=== PATIENT | female | born 1965 | race Caucasian/White ===

== ENCOUNTER 2018-05-14 10:42 | Day surgery (SDC) | payer MEDICARE, OTHER ==
[~2018-05-14] VITALS: Ht 167.6 cm; Wt 109.5 kg
[~2018-05-14 10:42] MED LIST: ABAT250V; ASPI81CH PO; ATOR80 PO; BIOTIN10000 MC1; BUSP10 PO; Bactrim Ds Tab1 EACH PO; Black Cohosh40 M1; CARNITINE; CETI5 PO; CHOL10002; CYCL10 PO; Coq-10100 MG PO; DICL75ER; FLUO10 PO; GABA300 PO; GABA400 PO; IBUP800 PO; LOSA25 PO; LOSA50 PO; Melatonin5 M1; Multivitamin1 EAC1; NITR100 PO; OMEP20ER PO; OXYACE5T PO; PARO20 PO; PHENA100 PO; PHENA200 PO; PRAV10 PO; PRAV20 PO; Pyridium100 MG PO; SULTRIDS PO; TRAZ100 PO
== END 2018-05-14 15:01 | disposition home or self-care (01) ==
LOC: ORSCSDS 10:42
PROVIDERS: Podiatrist Foot & Ankle Surgery
PROC: 0QBL0ZZ Excision of Right Tarsal, Open Approach (ICD-10-PCS; principal; 2018-05-14 11:45)
PROC: 0L8N0ZZ Division of Right Lower Leg Tendon, Open Approach (ICD-10-PCS; principal; 2018-05-14 11:45)
DX: M24.571 Contracture, right ankle (principal); M76.61 Achilles tendinitis, right leg; I10 Essential (primary) hypertension; E66.01 Morbid (severe) obesity due to excess calories; Z68.39 Body mass index [BMI] 39.0-39.9, adult; Z79.899 Other long term (current) drug therapy
CPT/HCPCS: C1713; J0171; J0690; J1100; J1885; J2250; J2405; J2710; J3010; J7120

== ENCOUNTER 2019-04-18 09:16 | Day surgery (SDC) | payer MEDICARE, OTHER ==
[~2019-04-18] VITALS: Ht 167.6 cm; Wt 103.2 kg
[~2019-04-18 09:16] MED LIST changes: +Percocet 10-321 EACH PO
--- NOTE | 2019-04-18 09:32 | NUR ---
PT ADMITTED TO [facility]. AGREES WITH PLANNED PROCEURE. TOLERATED BOWEL PREP, STATES LAST BM CLEAR. C/O CHRONIC PAIN LEFT HIP 04/04
--- NOTE | 2019-04-18 09:49 | NUR ---
04/18/19 0949 Barbara Richmond History, Chart, Medications and Allergies reviewed before start of procedure. Patient confirms NPO status and agrees with scheduled surgery. PATIENT DETERMINED TO BE ASA APPROPRIATE FOR PROPOFOL SEDATION PRIOR TO START OF PROCEDURE BY DR. LITTLEJOHN. 3-LEAD EKG REVIEWED WITH PHYSICIAN PRIOR TO START OF PROCEDURE. MONITOR INTACT WITH CONTINUOUS PULSE OXIMETRY AND INTERMITTENT BP.
--- NOTE | 2019-04-18 10:44 | NUR ---
PATIENT DISCHARGED WITH INSTRUCTIONS AND AT BASELINE STEADINESS VIA W/C.
== END 2019-04-18 10:46 | disposition home or self-care (01) ==
LOC: ORSCMMR 09:16 → ORD 10:00 → ORSCMMR 10:46
PROVIDERS: Internal Medicine Gastroenterology
PROC: 0DBM8ZX Excision of Descending Colon, Via Natural or Artificial Opening Endoscopic, Diagnostic (ICD-10-PCS; principal; 2019-04-18 10:00)
DX: Z12.11 Encounter for screening for malignant neoplasm of colon (principal); Z80.0 Family history of malignant neoplasm of digestive organs; D12.4 Benign neoplasm of descending colon; K64.8 Other hemorrhoids; K21.9 Gastro-esophageal reflux disease without esophagitis; I10 Essential (primary) hypertension; E78.00 Pure hypercholesterolemia, unspecified; E11.9 Type 2 diabetes mellitus without complications; Z79.84 Long term (current) use of oral hypoglycemic drugs; Z79.899 Other long term (current) drug therapy
CPT/HCPCS: 82947; 88305; J2704; J7120

== ENCOUNTER 2019-08-15 17:55 | Emergency (ER) | payer MEDICARE, OTHER ==
[~2019-08-15] VITALS: Ht 167.6 cm; Wt 103.9 kg
[2019-08-15] MEDS ORDERED: METF500 PO (18:48)
== END 2019-08-15 19:14 | disposition home or self-care (01) ==
LOC: ER 17:55
DX: S80.02XA Contusion of left knee, initial encounter (principal); I10 Essential (primary) hypertension; Z91.048 Other nonmedicinal substance allergy status; Z79.899 Other long term (current) drug therapy; Z79.82 Long term (current) use of aspirin; Z87.891 Personal history of nicotine dependence; W19.XXXA Unspecified fall, initial encounter
CPT/HCPCS: 73562-LT; 99283-25

== ENCOUNTER 2019-10-13 11:05 | Day surgery (SDC) | payer MEDICARE, OTHER ==
[~2019-10-13] VITALS: Ht 167.6 cm; Wt 104.2 kg
[~2019-10-13 11:05] MED LIST changes: +METF500 PO
--- NOTE | 2019-10-13 11:26 | NUR ---
10/13/19 Rosenda6 Lexie Metzger CALL LIGHT WITHIN REACH.
--- NOTE | 2019-10-13 12:39 | NUR ---
10/13/19 1239 Karina Lange IV IN LEFT HAND INFILTRATED IN OR, DISCONTINUED INTACT. NEW IV PLACED IN RIGHT HAND.
== END 2019-10-13 14:05 | disposition home or self-care (01) ==
LOC: ORSCSDS 11:05
PROVIDERS: Orthopaedic Surgery
PROC: 0MBL0ZZ Excision of Right Hip Bursa and Ligament, Open Approach (ICD-10-PCS; principal; 2019-10-13 12:30)
DX: M70.61 Trochanteric bursitis, right hip (principal); I10 Essential (primary) hypertension; E78.00 Pure hypercholesterolemia, unspecified; R73.03 Prediabetes; E66.9 Obesity, unspecified; Z68.37 Body mass index [BMI] 37.0-37.9, adult; Z79.82 Long term (current) use of aspirin; Z79.84 Long term (current) use of oral hypoglycemic drugs; Z79.899 Other long term (current) drug therapy; Z87.891 Personal history of nicotine dependence
CPT/HCPCS: 82947; J0171; J0690; J1100; J1885; J2250; J2370; J2405; J2704; J3010; J7120

== ENCOUNTER 2022-02-18 09:01 | Day surgery (SDC) | payer MEDICARE, OTHER ==
[~2022-02-18] VITALS: Ht 167.6 cm; Wt 113.7 kg
[~2022-02-18 09:01] MED LIST changes: +CLIMARA1 EACH; +Crestor40 MG PO
[2022-02-18] MEDS ORDERED: Crestor20 MG (09:58)
[2022-02-18] MEDS ORDERED: GABA800 (09:59)
[2022-02-18] MEDS ORDERED: HYDROCODONE-AC1 EAC7 (10:00)
[2022-02-18] MEDS ORDERED: MORP30 (10:00)
== END 2022-02-18 11:01 | disposition home or self-care (01) ==
LOC: ORSCSDS 09:01
PROVIDERS: Internal Medicine Gastroenterology
PROC: 0DB58ZX Excision of Esophagus, Via Natural or Artificial Opening Endoscopic, Diagnostic (ICD-10-PCS; principal; 2022-02-18 10:15)
DX: K21.9 Gastro-esophageal reflux disease without esophagitis (principal); K44.9 Diaphragmatic hernia without obstruction or gangrene; E11.9 Type 2 diabetes mellitus without complications; E66.01 Morbid (severe) obesity due to excess calories; Z68.41 Body mass index [BMI] 40.0-44.9, adult; I10 Essential (primary) hypertension; G47.33 Obstructive sleep apnea (adult) (pediatric); Z87.891 Personal history of nicotine dependence; Z79.84 Long term (current) use of oral hypoglycemic drugs; Z79.899 Other long term (current) drug therapy
CPT/HCPCS: 82947; 88305; J2704; J7120

== ENCOUNTER 2023-03-05 22:05 | Emergency (ER) | payer MEDICARE, OTHER ==
[~2023-03-05] VITALS: Ht 167.6 cm; Wt 108.9 kg
[~2023-03-05 22:05] MED LIST changes: +Crestor20 MG; +GABA800 PO; +HYDROCODONE-AC1 EAC7 PO; +MORP30 PO
[2023-03-05] MEDS ORDERED: Simvastatin20 MG PO (22:42)
[2023-03-05] MEDS ORDERED: PANTOPRAZOLE SO40 M2 PO (22:43)
[2023-03-05] MEDS ORDERED: DULOXETINE HCL60 M1 PO (22:43)
[2023-03-05] MEDS ORDERED: ESTRADIOL1 M1 PO (22:44)
[2023-03-05 22:50] LABS: BASOPHILS ABSOLUTE AUTO 0.01 K/mm3 (0.00-0.23); BASOPHILS PERCENT AUTO 0 % (0-2); EOSINOPHILS ABSOLUTE AUTO 0.13 K/mm3 (0.00-0.68); EOSINOPHILS PERCENT AUTO 2 % (0-6); Hematocrit 38.4 % (33.0-51.0); Hemoglobin 12.3 g/dL (11.5-16.0); IMMATURE GRAN ABSOLUTE AUTO 0.02 K/mm3 (0.00-0.10); IMMATURE GRAN PERCENT AUTO 0 % (0-1); LYMPHOCYTES ABSOLUTE AUTO 1.53 K/mm3 (0.84-5.20); LYMPHOCYTES PERCENT AUTO 18 % (21-46); MONOCYTES ABSOLUTE AUTO 0.43 K/mm3 (0.16-1.47); MONOCYTES PERCENT AUTO 5 % (4-13); Mean Corpuscular HGB 25.9 pg (26.0-34.0); Mean Corpuscular Volume 81 fL (80-100); Mean Platelet Volume 9.8 fL (9.1-12.4); NEUTROPHILS ABSOLUTE AUTO 6.34 K/mm3 (1.96-9.15); NEUTROPHILS PERCENT AUTO 75 % (41-73); Platelet Count 248 K/mm3 (150-400); RDW Coefficient Variation 16.7 % (11.7-14.2); RDW Standard Deviation 48.9 fL (35.1-46.3); Red Blood Cell Count 4.74 M/mm3 (3.80-5.20); White Blood Cell Count 8.46 K/mm3 (4.00-11.30)
[2023-03-05 23:10] LABS: Albumin, Blood 3.2 g/dL (3.4-5.0); Albumin/Globulin Ratio 0.7 (0.8-1.8); Bilirubin, Total 0.3 mg/dL (0.1-1.0); Bun/Creatinine Ratio 14.2 (12.0-20.0); Creatinine, Blood 0.56 mg/dL (0.40-1.00); Globulin, Blood 4.5 g/dL (2.2-4.0); Potassium, Blood 3.6 mmol/L (3.5-5.5); Total Protein, Blood 7.7 g/dL (6.4-8.2)
[2023-03-05] MEDS ORDERED: ONDA4ODT MM (23:47)
[2023-03-06] VITALS: BP 137/79
== END 2023-03-06 00:30 | disposition home or self-care (01) ==
LOC: ER 22:05
PROVIDERS: Student in an Organized Health Care Education/Training Program
DX: K52.9 Noninfective gastroenteritis and colitis, unspecified (principal); R10.13 Epigastric pain; Z88.8 Allergy status to other drugs, medicaments and biological substances; Z79.899 Other long term (current) drug therapy; Z79.84 Long term (current) use of oral hypoglycemic drugs; I10 Essential (primary) hypertension; E78.00 Pure hypercholesterolemia, unspecified; Z87.891 Personal history of nicotine dependence
CPT/HCPCS: 80053; 85025; 93005; 93010; 99283-25; A9270

== ENCOUNTER 2023-06-30 23:16 | Emergency (ER) | payer MEDICARE, OTHER ==
[~2023-06-30] VITALS: Ht 167.6 cm; Wt 105.7 kg
[~2023-06-30 23:16] MED LIST changes: +DULOXETINE HCL60 M1 PO; +ESTRADIOL1 M1 PO; +ONDA4ODT MM; +PANTOPRAZOLE SO40 M2 PO; +Simvastatin20 MG PO
[2023-07-01 00:48] LABS: BASOPHILS ABSOLUTE AUTO 0.01 K/mm3 (0.00-0.23); BASOPHILS PERCENT AUTO 0 % (0-2); EOSINOPHILS ABSOLUTE AUTO 0.16 K/mm3 (0.00-0.68); EOSINOPHILS PERCENT AUTO 2 % (0-6); Hematocrit 32.4 % (33.0-51.0); Hemoglobin 10.2 g/dL (11.5-16.0); IMMATURE GRAN ABSOLUTE AUTO 0.01 K/mm3 (0.00-0.10); IMMATURE GRAN PERCENT AUTO 0 % (0-1); LYMPHOCYTES ABSOLUTE AUTO 2.17 K/mm3 (0.84-5.20); LYMPHOCYTES PERCENT AUTO 30 % (21-46); MONOCYTES PERCENT AUTO 7 % (4-13); Mean Corpuscular HGB 27.9 pg (26.0-34.0); Mean Corpuscular HGB Conc 31.5 g/dL (31.5-36.5); Mean Corpuscular Volume 89 fL (80-100); Mean Platelet Volume 10.1 fL (9.1-12.4); NEUTROPHILS ABSOLUTE AUTO 4.32 K/mm3 (1.96-9.15); NEUTROPHILS PERCENT AUTO 60 % (41-73); Platelet Count 227 K/mm3 (150-400); RDW Coefficient Variation 15.9 % (11.7-14.2); RDW Standard Deviation 52.4 fL (35.1-46.3); Red Blood Cell Count 3.65 M/mm3 (3.80-5.20); White Blood Cell Count 7.17 K/mm3 (4.00-11.30)
[2023-07-01 01:42] LABS: Albumin, Blood 2.7 g/dL (3.4-5.0); Albumin/Globulin Ratio 0.8 (0.8-1.8); Bilirubin, Total 0.2 mg/dL (0.1-1.0); Bun/Creatinine Ratio 12.5 (12.0-20.0); Calcium, Blood 7.9 mg/dL (8.5-10.1); Creatinine, Blood 0.72 mg/dL (0.40-1.00); Globulin, Blood 3.6 g/dL (2.2-4.0); Magnesium, Blood 1.9 mg/dL (1.6-2.4); Phosphorus, Blood 2.2 mg/dL (2.5-4.9); Potassium, Blood 4.3 mmol/L (3.5-5.5); Thyroid Stimulating Hormone 1.36 uIU/mL (0.360-4.800); Total Protein, Blood 6.3 g/dL (6.4-8.2)
[2023-07-01] MEDS ORDERED: CENTRUM SILVER1 EAC2 PO (02:02)
[2023-07-01 02:30] VITALS: BP 123/75
== END 2023-07-01 02:32 | disposition home or self-care (01) ==
LOC: ER 23:16
PROVIDERS: Emergency Medicine
DX: E83.39 Other disorders of phosphorus metabolism (principal); Z88.8 Allergy status to other drugs, medicaments and biological substances; Z79.899 Other long term (current) drug therapy; Z79.84 Long term (current) use of oral hypoglycemic drugs; Z79.891 Long term (current) use of opiate analgesic; I10 Essential (primary) hypertension; E78.5 Hyperlipidemia, unspecified; K21.9 Gastro-esophageal reflux disease without esophagitis; E11.9 Type 2 diabetes mellitus without complications; Z87.891 Personal history of nicotine dependence
CPT/HCPCS: 71046; 80053; 83735; 84100; 84443; 85025; 93005; 93010; 96360; 99285-25; A9270; J7030

== ENCOUNTER 2025-01-06 11:21 | Day surgery (SDC) | payer MEDICARE, OTHER ==
[~2025-01-06] VITALS: Ht 160 cm; Wt 112.7 kg
[~2025-01-06 11:21] MED LIST changes: +Atropine Sulfate 0.1 MG/ML 10ML SYR ONE; +CENTRUM SILVER1 EAC2 PO; +Glycopyrrolate 0.2 MG/ML 1MLVIAL ONE; +Lactated Ringer's 1,000 ML IV ONE; +Lactated Ringer's 1,000 ML IV SCH; +Lidocaine 2% 5 ML SDV ONE; +Lidocaine HCl/Pf 1% 5 ML VIAL ONE; +MAGNESIUM PO; +Methylene Blue 1% 100 MG/10 ML VIAL ONE; +Ondansetron HCl 2 MG / ML 2ML Vial ONE; +ePHEDrine Sulfate 50 MG/ML 1ML Injection ONE; +propofoL 0 ML IV ONE
[2025-01-06 11:52] VITALS: BP 141/83
--- NOTE | 2025-01-06 12:26 | NUR ---
Ambulatory in Day Surgery W/CANE Patient confirms NPO status and agrees with scheduled surgery. Pre-Op teaching done. Pt verbalizes understanding. History, Chart, Medications and Allergies reviewed before start of procedure.Patient States Post-Procedure ride home has been arranged.
[2025-01-06] MEDS ORDERED: propofoL 60 ML IV ONE (13:11)
[2025-01-06] MEDS ORDERED: Lidocaine HCl 2% 10 ML SDA ONE (13:11)
--- NOTE | 2025-01-06 13:17 | NUR ---
01/06/25 1317 Baldo Polanco MONITOR INTACT WITH CONTINUOUS PULSE OXIMETRY, CONTINUOUS END TITAL CO2, 3-LEAD EKG AND INTERMITTENT BLOOD PRESSURE. SEE ANESTHESIA RECORD
[2025-01-06] MEDS ORDERED: OZEMPIC0.25 MG/02 (13:22)
[2025-01-06 13:45] VITALS: BP 104/76
[2025-01-06 14:00] VITALS: BP 114/90
--- NOTE | 2025-01-06 14:06 | NUR ---
Patient up to Ambulate independently. Gait steady. Discharge instructions reviewed with patient. Patient verbalizes understanding. Copy given to patient to take home. Discharged via wheelchair to private car for ride home. PT TO F/U W/ DR. RAMIREZ'S OFFICE TO REPEAT MULTI DAY CLEAN OUT THE TEST WAS UNABLE TO BE COMPLETED D/T POOR CLEAN OUT
[2025-01-06] MEDS ORDERED: Phenylephrine HCl 40 MCG/ML-NS 10MLSYR (0.4MG/ML) IV ONE (14:44)
== END 2025-01-06 13:46 | disposition home or self-care (01) ==
LOC: ORSCSDS 11:21 → ORSCMMR 11:21 → ORSCSDS 13:46 → ORSCMMR 13:46 → ORSCSDS 14:07
PROVIDERS: Surgery
PROC: 0DJD8ZZ Inspection of Lower Intestinal Tract, Via Natural or Artificial Opening Endoscopic (ICD-10-PCS; principal; 2025-01-06 12:30)
DX: Z12.11 Encounter for screening for malignant neoplasm of colon (principal); K57.30 Diverticulosis of large intestine without perforation or abscess without bleeding; Z86.0101 Personal history of adenomatous and serrated colon polyps; I10 Essential (primary) hypertension; E78.2 Mixed hyperlipidemia; R73.03 Prediabetes; Z87.891 Personal history of nicotine dependence; E66.01 Morbid (severe) obesity due to excess calories; Z68.41 Body mass index [BMI] 40.0-44.9, adult; K21.9 Gastro-esophageal reflux disease without esophagitis; F32.9 Major depressive disorder, single episode, unspecified; Z79.899 Other long term (current) drug therapy
CPT/HCPCS: J0461; J2003; J2371; J2405; J2704; J7120; Q9968

== ENCOUNTER 2025-02-24 08:17 | Day surgery (SDC) | payer MEDICARE, OTHER ==
[~2025-02-24] VITALS: Ht 160 cm; Wt 110.0 kg
[~2025-02-24 08:17] MED LIST changes: +ASHWAGANDHA300 MG; -Atropine Sulfate 0.1 MG/ML 10ML SYR ONE; +COLLAGEN SKIN1 EACH PO; +FERSU300 PO; -Glycopyrrolate 0.2 MG/ML 1MLVIAL ONE; -Lactated Ringer's 1,000 ML IV ONE; -Lidocaine 2% 5 ML SDV ONE; -Lidocaine HCl/Pf 1% 5 ML VIAL ONE; +MERIBIN5 MG PO; +MULTI-VITAMIN1 EAC2 PO; -Methylene Blue 1% 100 MG/10 ML VIAL ONE; +Milk Thistle175 M1 PO; +OZEMPIC0.25 MG/02; +OZEMPIC0.25 MG/02 INJ; -Ondansetron HCl 2 MG / ML 2ML Vial ONE; +VITAMIN K240 MCG; +Vitamin B Comple1 EA PO; -ePHEDrine Sulfate 50 MG/ML 1ML Injection ONE; -propofoL 0 ML IV ONE
--- NOTE | 2025-02-24 08:35 | NUR ---
PT TO [facility] FOR COLONOSCOPY. PLAN OF CARE DISCUSSED, QUESTIONS ANSWERED. PT HAS RIDE HOME
[2025-02-24 08:45] VITALS: BP 137/68
[2025-02-24] MEDS ORDERED: Lidocaine HCl 1% 5 ML SYR INJ ONE (09:20)
[2025-02-24] MEDS ORDERED: Lactated Ringer's 1,000 ML IV SCH (09:20)
[2025-02-24] MEDS ORDERED: Ondansetron HCl 2 MG / ML 2ML Vial IV PRN ×2 (09:45→09:50)
[2025-02-24] MEDS ORDERED: Albuterol 2.5 MG/3 ML VIAL INH PRN ×2 (09:45)
--- NOTE | 2025-02-24 09:59 | NUR ---
02/24/25 0959 Shirley Lancaster MONITOR INTACT WITH CONTINUOUS PULSE OXIMETRY, CONTINUOUS END TITAL CO2, 3-LEAD EKG AND INTERMITTENT BLOOD PRESSURE. See Anesthesia record FOR SEDATION RECORD.
[2025-02-24] MEDS ORDERED: propofoL 20 ML IV ONE (10:21)
[2025-02-24] MEDS ORDERED: propofoL 40 ML IV ONE (10:38)
[2025-02-24 10:47] VITALS: BP 86/69
[2025-02-24 10:48] VITALS: BP 98/64
--- NOTE | 2025-02-24 10:51 | NUR ---
TO STEP POST PROCEDURE. DROWSY, AWAKES EASILY. DENIES PAIN, NAUSEA, SOB. IMAGING ORDERED FOR TODAY PRIOR TO PT DISCHARGE.
[2025-02-24 10:58] VITALS: BP 105/68
--- NOTE | 2025-02-24 11:18 | NUR ---
1110: TO CT. WILL RETURN TO [facility] PRIOR TO DISCHARGE. VALENTINO CALLED.
[2025-02-24 11:28] VITALS: BP 120/64
--- NOTE | 2025-02-24 11:34 | NUR ---
CT COMPLETED. IV DC'D INTACT. DISCHARGED IN STABLE CONDITION WITH BELONGINGS.
== END 2025-02-24 11:37 | disposition home or self-care (01) ==
LOC: ORSCMMR 08:17 → ORD 09:30 → ORSCMMR 09:30
PROVIDERS: Surgery
PROC: 0DBP8ZX Excision of Rectum, Via Natural or Artificial Opening Endoscopic, Diagnostic (ICD-10-PCS; principal; 2025-02-24 09:30)
PROC: 3E0H8KZ Introduction of Other Diagnostic Substance into Lower GI, Via Natural or Artificial Opening Endoscopic (ICD-10-PCS; principal; 2025-02-24 09:30)
PROC: 0DBN8ZX Excision of Sigmoid Colon, Via Natural or Artificial Opening Endoscopic, Diagnostic (ICD-10-PCS; principal; 2025-02-24 09:30)
DX: Z12.11 Encounter for screening for malignant neoplasm of colon (principal); D12.4 Benign neoplasm of descending colon; K62.1 Rectal polyp; K56.699 Other intestinal obstruction unspecified as to partial versus complete obstruction; I10 Essential (primary) hypertension; E78.5 Hyperlipidemia, unspecified; Z87.891 Personal history of nicotine dependence; G47.33 Obstructive sleep apnea (adult) (pediatric); K21.9 Gastro-esophageal reflux disease without esophagitis; R73.03 Prediabetes; E66.01 Morbid (severe) obesity due to excess calories; Z68.41 Body mass index [BMI] 40.0-44.9, adult; Z79.899 Other long term (current) drug therapy; Z79.85 Long-term (current) use of injectable non-insulin antidiabetic drugs
CPT/HCPCS: 71260; 74177; 82947; 88305; J2704; J7120; Q9967

== ENCOUNTER 2025-05-11 00:32 | Emergency (ER) | payer MEDICARE, OTHER ==
[~2025-05-11] VITALS: Ht 157.5 cm; Wt 113.4 kg
[~2025-05-11 00:32] MED LIST changes: -Lactated Ringer's 1,000 ML IV SCH; +METO10 PO
[2025-05-11] MEDS ORDERED: Ketorolac Tromethamine 30mg Vial IV ONE (01:35)
[2025-05-11 02:00] VITALS: BP 199/100
[2025-05-11 02:06] LABS: Alanine Aminotransfer (ALT/SGP 30.0 U/L (12-78); Albumin, Blood 3.2 g/dL (3.4-5.0); Albumin/Globulin Ratio 0.6 (0.8-1.8); Anion Gap 12.0 mmol/L (3-11); Aspartate Aminotrans (AST/SGOT 28.0 U/L (12-37); Bilirubin, Total 0.6 mg/dL (0.1-1.0); Blood Urea Nitrogen 3.0 mg/dL (8-24); CO2, Blood 26.0 mmol/L (21-32); Calcium, Blood 9.1 mg/dL (8.5-10.1); Chloride, Blood 99.0 mmol/L (98-108); Creatinine, Blood 0.6 mg/dL (0.40-1.00); Globulin, Blood 5.3 g/dL (2.2-4.0); Glucose, Blood 152.0 mg/dL (70-99); Potassium, Blood 3.9 mmol/L (3.5-5.5); Sodium, Blood 133.0 mmol/L (136-145); Total Protein, Blood 8.5 g/dL (6.4-8.2)
[2025-05-11 02:11] LABS: BASOPHILS ABSOLUTE AUTO 0.02 K/mm3 (0.00-0.23); BASOPHILS PERCENT AUTO 0 % (0-2); EOSINOPHILS ABSOLUTE AUTO 0.03 K/mm3 (0.00-0.68); EOSINOPHILS PERCENT AUTO 0 % (0-6); Hematocrit 40.4 % (33.0-51.0); Hemoglobin 13.3 g/dL (11.5-16.0); IMMATURE GRAN ABSOLUTE AUTO 0.02 K/mm3 (0.00-0.10); IMMATURE GRAN PERCENT AUTO 0 % (0-1); LYMPHOCYTES ABSOLUTE AUTO 1.03 K/mm3 (0.84-5.20); LYMPHOCYTES PERCENT AUTO 10 % (21-46); MONOCYTES ABSOLUTE AUTO 0.37 K/mm3 (0.16-1.47); MONOCYTES PERCENT AUTO 3 % (4-13); Mean Corpuscular HGB Conc 32.9 g/dL (31.5-36.5); Mean Corpuscular Volume 89 fL (80-100); NEUTROPHILS ABSOLUTE AUTO 9.37 K/mm3 (1.96-9.15); NEUTROPHILS PERCENT AUTO 86 % (41-73); NRBC ABSOLUTE 0.00 K/mm3 (0.00-0.02); NRBC Auto 0.0 /100 WBC (0.0-0.2); Platelet Count 240 K/mm3 (150-400); RDW Coefficient Variation 15.1 % (11.7-14.2); RDW Standard Deviation 48.5 fL (35.1-46.3)
[2025-05-11] MEDS ORDERED: Ondansetron HCl 2 MG / ML 2ML Vial IV ONE (02:20)
[2025-05-11 02:37] LABS: Source, Urine Clean Catch
[2025-05-11 02:42] LABS: Bilirubin, Urine Neg (Neg); Glucose Qualitative, Urine Neg (Neg); Ketones, Urine 4+ (Neg); Leukocyte Esterase, Urine Neg (Neg); Protein, Urine 2+ (Neg); Specific Gravity, Urine 1.010 (1.003-1.022); Urobilinogen, Urine NORM (Normal)
[2025-05-11 02:58] LABS: Color, Urine Yellow (P-Yellow)
[2025-05-11 02:59] LABS: Red Blood Cells, Urine 0-2 /hpf (0-2); White Blood Cells, Urine 0-2 /hpf (0-5)
[2025-05-11] MEDS ORDERED: Morphine Sulfate 4 MG/1 ML Injection IV ONE (03:10)
[2025-05-11] MEDS ORDERED: Trimethoprim/Sulfamethoxazole DS Tab PO ONE (03:25)
[2025-05-11] MEDS ORDERED: CefTRIAXone Sodium 1,000 MG in NS 100 ML IV ONE (03:25)
[2025-05-11] MEDS ORDERED: Flagyl500 MG PO (03:27)
[2025-05-11] MEDS ORDERED: Bactrim Ds Tab1 EACH PO (03:27)
[2025-05-11] MEDS ORDERED: IBU600 MG PO (03:27)
== END 2025-05-11 03:54 | disposition home or self-care (01) ==
LOC: ER 00:32
PROVIDERS: Emergency Medicine
DX: K52.9 Noninfective gastroenteritis and colitis, unspecified (principal); I10 Essential (primary) hypertension; E11.9 Type 2 diabetes mellitus without complications; E78.5 Hyperlipidemia, unspecified; K21.9 Gastro-esophageal reflux disease without esophagitis; Z87.891 Personal history of nicotine dependence; Z79.899 Other long term (current) drug therapy; Z91.048 Other nonmedicinal substance allergy status
CPT/HCPCS: 74177; 80053; 81001; 83605; 83690; 85025; 96365-59; 96375; 99285-25; A9270; J0696; J1885; J2270; J2405; Q9967

== ENCOUNTER 2025-08-22 16:54 | Inpatient (IN) | payer MEDICARE, OTHER ==
[~2025-08-22] VITALS: Ht 160 cm; Wt 118.0 kg
[~2025-08-22 16:54] MED LIST changes: +Flagyl500 MG PO; +IBU600 MG PO
[2025-08-22 17:20] LABS: BASOPHILS ABSOLUTE AUTO 0.03 K/mm3 (0.00-0.23); BASOPHILS PERCENT AUTO 0 % (0-2); EOSINOPHILS ABSOLUTE AUTO 0.03 K/mm3 (0.00-0.68); EOSINOPHILS PERCENT AUTO 0 % (0-6); Hematocrit 33.2 % (33.0-51.0); Hemoglobin 10.6 g/dL (11.5-16.0); IMMATURE GRAN ABSOLUTE AUTO 0.04 K/mm3 (0.00-0.10); IMMATURE GRAN PERCENT AUTO 0 % (0-1); LYMPHOCYTES ABSOLUTE AUTO 0.90 K/mm3 (0.84-5.20); LYMPHOCYTES PERCENT AUTO 8 % (21-46); MONOCYTES ABSOLUTE AUTO 0.56 K/mm3 (0.16-1.47); MONOCYTES PERCENT AUTO 5 % (4-13); Mean Corpuscular HGB Conc 31.9 g/dL (31.5-36.5); Mean Corpuscular Volume 92 fL (80-100); NEUTROPHILS ABSOLUTE AUTO 10.03 K/mm3 (1.96-9.15); NEUTROPHILS PERCENT AUTO 87 % (41-73); NRBC ABSOLUTE 0.00 K/mm3 (0.00-0.02); NRBC Auto 0.0 /100 WBC (0.0-0.2); Platelet Count 182 K/mm3 (150-400); RDW Coefficient Variation 14.4 % (11.7-14.2); RDW Standard Deviation 48.3 fL (35.1-46.3)
[2025-08-22] MEDS ORDERED: Albuterol 2.5 MG/3 ML VIAL INH SCH (17:20)
[2025-08-22] MEDS ORDERED: Morphine Sulfate 4 MG/1 ML Injection IV ONE ×2 (17:25→18:05)
[2025-08-22] MEDS ORDERED: LORazepam 2 MG/ML 1ML Injection IV ONE (17:25)
[2025-08-22 17:27] LABS: pH Blood Venous 7.35 (7.34-7.37)
[2025-08-22 18:16] LABS: Alanine Aminotransfer (ALT/SGP 44.0 U/L (12-78); Albumin, Blood 3.1 g/dL (3.4-5.0); Albumin/Globulin Ratio 0.8 (0.8-1.8); Anion Gap 10.0 mmol/L (3-11); Aspartate Aminotrans (AST/SGOT 49.0 U/L (12-37); Bilirubin, Total 0.4 mg/dL (0.1-1.0); Blood Urea Nitrogen 8.0 mg/dL (8-24); CO2, Blood 28.0 mmol/L (21-32); Calcium, Blood 8.8 mg/dL (8.5-10.1); Chloride, Blood 100.0 mmol/L (98-108); Creatinine, Blood 0.64 mg/dL (0.40-1.00); Globulin, Blood 4.0 g/dL (2.2-4.0); Glucose, Blood 159.0 mg/dL (70-99); Potassium, Blood 4.1 mmol/L (3.5-5.5); Sodium, Blood 134.0 mmol/L (136-145); Total Protein, Blood 7.1 g/dL (6.4-8.2)
[2025-08-22 18:28] LABS: Influenza A, PCR NEGATIVE (NEGATIVE); Influenza B, PCR NEGATIVE (NEGATIVE); Resp Syncytial Virus, PCR NEGATIVE (NEGATIVE); SARS-Cov-2 (COVID-19) PCR, MMC NEGATIVE (NEGATIVE)
[2025-08-22] MEDS ORDERED: Bupropion HCl75 MG (18:29)
[2025-08-22] MEDS ORDERED: HYDROmorphone HCl/Pf 1MG SYR ONE (19:44)
[2025-08-22] MEDS ORDERED: HYDROmorphone HCl/Pf 1MG SYR IV ONE (19:45)
[2025-08-22] MEDS ORDERED: Morphine Sulfate 4 MG/1 ML Injection IV PRN (20:50)
[2025-08-22] MEDS ORDERED: FLU VACC TS2025-26(6MOS UP)/PF 45 MCG/0.5 ML SYRINGE IM SCH (20:50)
[2025-08-22] MEDS ORDERED: Ondansetron HCl 2 MG / ML 2ML Vial IV PRN (20:50)
[2025-08-22] MEDS ORDERED: Albuterol 2.5 MG/3 ML VIAL INH PRN (20:55)
--- NOTE | 2025-08-22 21:46 | NUR ---
ARRIVAL NOTE PATIENT ARRIVES TO PCU ROOM 17 VIA ED GURNEY ON 4L/MIN NC. RR IN 20'S. PATIENT APPEARS TO BE ANXIOUS AND FOCUSING ON HER BREATHING. PATIENT TRANSFERRED FROM ED BED TO PCU BED VIA SLIDER SHEET. VITALS CHECKED. SPO2 97-100% ON SUPPLEMENTAL OXYGEN. PATIENT PROVIDED VERBAL COMFORT AND REASSURANCE. RT AT BEDSIDE SETTING UP BIPAP. PATIENT OPTED TO STAY OFF BIPAP AT THIS TIME. PATIENT STATES SHE HAS NOT EATING SINCE THIS MORNING. SIDE RAILS X3 UP AND CALL LIGHT IN REACH. PATIENT ORIENTED TO UNIT. PLAN OF CARE ONGOING AT THIS TIME.
[2025-08-22 22:18] LABS: Influenza A/2009-H1 Not Detected (NOT DETECT); SARS-Cov-2 (COVID-19), BioFire Not Detected (NOT DETECT)
[2025-08-22 22:26] VITALS: BP 190/107; BP 190/111
[2025-08-22] MEDS ORDERED: HydrALAZINE HCl 20 MG / ML 1ML Vial IV PRN (22:45)
--- NOTE | 2025-08-22 22:46 | NUR ---
NOTIFIED HOSPITAL RESIDENT OF ELEVATED BP. ORDERS RECEIVED. PATIENT'S PAIN DECREASED TO 6/10 HEADACHE.
[2025-08-22 23:16] VITALS: BP 178/97
[2025-08-22 23:27] LABS: pH Blood Venous 7.35 (7.34-7.37)
--- NOTE | 2025-08-22 23:55 | NUR ---
INCREASED MID SUBSTERNAL CP THAT INCREASED WITH BREATHING. RR IN 40'S O2 WNL. PATIENT PLACED ON BIPAP WITH NO IMPROVEMENT. EKG DONE. DISCUSSED WITH CHARGE NURSE. CALLED RESIDENT TO NOTIFY OF CONTINUED ELEVATED BP AND CHEST PAIN WITH CP. PENDING ORDERS AT THIS TIME.
[2025-08-23] VITALS (14 sets, daily range): BP systolic 139–205; BP diastolic 70–118
[2025-08-23] MEDS ORDERED: HYDROmorphone HCl/Pf 1MG SYR ONE (00:26)
[2025-08-23] MEDS ORDERED: Pantoprazole Sodium 40 MG Injection IV ONE (00:30)
[2025-08-23] MEDS ORDERED: HYDROmorphone HCl/Pf 1MG SYR IV ONE ×2 (00:30→05:35)
[2025-08-23] MEDS ORDERED: FentaNYL Citrate 50 MCG/ML 2 ML Injection ONE (00:33)
[2025-08-23] MEDS ORDERED: FentaNYL Citrate 50 MCG/ML 2 ML Injection IV ONE (00:35)
[2025-08-23] MEDS ORDERED: Labetalol HCL 5 MG/ML 4ML Injection (Single Dose) ONE (00:38)
[2025-08-23] MEDS ORDERED: Labetalol HCL 5 MG/ML 4ML Injection (Single Dose) IV ONE (00:40)
[2025-08-23] MEDS ORDERED: FentaNYL Citrate 50 MCG/ML 2 ML Injection IV PRN (00:55)
[2025-08-23] MEDS ORDERED: Labetalol HCL 5 MG/ML 4ML Injection (Single Dose) IV PRN (00:55)
[2025-08-23 01:02] LABS: Anion Gap 15.0 mmol/L (3-11); Blood Urea Nitrogen 7.0 mg/dL (8-24); CO2, Blood 25.0 mmol/L (21-32); Calcium, Blood 9.1 mg/dL (8.5-10.1); Chloride, Blood 96.0 mmol/L (98-108); Creatinine, Blood 0.65 mg/dL (0.40-1.00); Glucose, Blood 221.0 mg/dL (70-99); Magnesium, Blood 1.5 mg/dL (1.6-2.4); Phosphorus, Blood 3.5 mg/dL (2.5-4.9); Potassium, Blood 4.0 mmol/L (3.5-5.5); Sodium, Blood 132.0 mmol/L (136-145)
[2025-08-23] MEDS ORDERED: Isosorbide Mononitrate 30 MG TABCR PO SCH (01:25)
[2025-08-23] MEDS ORDERED: HYDROmorphone HCl/Pf 1MG SYR IV PRN (01:50)
--- NOTE | 2025-08-23 02:53 | NUR ---
PATIENT CONTINUED TO HAVE CP AND SOB IN SPITE OF HAVING BIPAP ON. PATIENT SPEAKING IN BROKEN SENTENCES. PATIENT WAS MEDICATED WITH NITRO X1 SL AT APPROX 0001. PATIENT'S RR DECREASED FROM 30-20'S. PATIENT REPORTED PAIN DECREASING SLIGHTLY BUT INCREASED HER SENSE OF SHORTNESS OF BREATH. HR INCREASED TO 110'S. OBVIOUS LABORED BREATHING. RT, PCU CN, ICU CN, OTHER STAFF TO BEDSIDE. CALL MADE TO RESIDENT REQUESTING HER TO COME TO BEDSIDE AT [phone]. REVIEWED PATIENT'S HISTORY, LABS, MEDICATIONS, RECENT ASSESSMENTS WITH OTHER NURSES/RT IN ROOM. LS INS/EXP CRACKLES. 0012: RESIDENT TO BEDSIDE. DISCUSSED CASE WITH HER. PATIENT STILL VERY SOB. SPO2 WNL. RR IN 30'S. ST ON MONITOR 110'S WITH PACS. EKG DONE AND GIVEN TO PROVIDER. 0020: DISCUSSED CASE WITH DR CLAROS AND NURSING TEAM. RECEIVED ORDERS FOR DILAUDID, PROTONIX, FENT, LABETALOL, ZOFRAN. SEE EMAR. BP IMPROVING. DR CLAROS REVIEWING CHART AND EKG. PRIMARY RN REMAINS AT BEDSIDE. 0115: PATIENT REPORTS PAIN SIGNIFICANTLY DECREASED. PATIENT NO LONGER SOB. SPO2 WNL. RR IN 20'S - IMPROVING. BP IMPROVED AFTER LABETALOL. PATIENT VOIDED APPROX 1100 ML YELLOW URINE IN BSC. 1 PERSON ASSIST FOR CORD MANAGEMENT. DR CLAROS TO BEDSIDE TO RE-EVAL. 1V CXR DONE. 0200: RESIDENT TO BEDSIDE TO RE-EVAL. PATIENT LOOKS MUCH BETTER. NO SOB REPORTED. CP DECREASED WITH EASE OF BREATHING. SR ON MONITOR 80-90'S.
[2025-08-23 04:03] LABS: BASOPHILS ABSOLUTE AUTO 0.01 K/mm3 (0.00-0.23); BASOPHILS PERCENT AUTO 0 % (0-2); EOSINOPHILS ABSOLUTE AUTO 0.00 K/mm3 (0.00-0.68); EOSINOPHILS PERCENT AUTO 0 % (0-6); Hematocrit 35.1 % (33.0-51.0); Hemoglobin 11.4 g/dL (11.5-16.0); IMMATURE GRAN ABSOLUTE AUTO 0.06 K/mm3 (0.00-0.10); IMMATURE GRAN PERCENT AUTO 0 % (0-1); LYMPHOCYTES ABSOLUTE AUTO 0.42 K/mm3 (0.84-5.20); LYMPHOCYTES PERCENT AUTO 3 % (21-46); MONOCYTES ABSOLUTE AUTO 0.43 K/mm3 (0.16-1.47); MONOCYTES PERCENT AUTO 3 % (4-13); Mean Corpuscular HGB Conc 32.5 g/dL (31.5-36.5); Mean Corpuscular Volume 91 fL (80-100); NEUTROPHILS ABSOLUTE AUTO 13.19 K/mm3 (1.96-9.15); NEUTROPHILS PERCENT AUTO 94 % (41-73); NRBC ABSOLUTE 0.00 K/mm3 (0.00-0.02); NRBC Auto 0.0 /100 WBC (0.0-0.2); Platelet Count 204 K/mm3 (150-400); RDW Coefficient Variation 14.5 % (11.7-14.2); RDW Standard Deviation 48.1 fL (35.1-46.3)
[2025-08-23 04:28] LABS: Anion Gap 11.0 mmol/L (3-11); Blood Urea Nitrogen 8.0 mg/dL (8-24); CO2, Blood 29.0 mmol/L (21-32); Calcium, Blood 9.1 mg/dL (8.5-10.1); Chloride, Blood 95.0 mmol/L (98-108); Creatinine, Blood 0.67 mg/dL (0.40-1.00); Glucose, Blood 181.0 mg/dL (70-99); Magnesium, Blood 1.6 mg/dL (1.6-2.4); Potassium, Blood 4.1 mmol/L (3.5-5.5); Sodium, Blood 131.0 mmol/L (136-145)
[2025-08-23] MEDS ORDERED: Furosemide 10 MG / ML 2ML Vial IV ONE (05:40)
--- NOTE | 2025-08-23 06:09 | NUR ---
SHIFT SUMMARY PATIENT ARRIVED TO UNIT A/OX4. OBVIOUS SOB AND TACHYPNEA. PATIENT HAD EPISODE OF 10/10 CP AND INCREASED SOB. HOSPITALIST AND MULTIPLE STAFF WERE AT BEDSIDE DURING EPISODE. PATIENT RECEIVED PAIN MEDICATION AND LASIX. EKG X2 DONE. PAIN EVENTUALLY IMPROVED. PATIENT WAS ABLE TO COMMUNICATE IN FULL SENTENCES WITHOUT SOB. CPAP WAS ON FOR SHORT PERIOD, BUT PATIENT DIDN'T TOLERATE WELL. SHE HAD ANOTHER EPISODE OF INCREASED TIGHTNESS IN CHEST WITH SOB APPROX [address] LIZAMA CAME TO BEDSIDE AND GAVE V/O FOR DILAUDID 0.5MG IVP AND LASIX 20MG IVP. CRACKLES AUSC IN BASES OF LUNGS. PAIN AND SOB IMPROVED AFTER DILAUDID. REVIEWED URINE OUTPUT OVER 2L SINCE ADMISSION. PROVIDER CANCELLED EXTRA DOSE OF LASIX. OVERALL PATIENT IMPROVED FROM EARLIER. SR ON MONITOR. BP IMPROVED. PLAN OF CARE ONGOING.
[2025-08-23] MEDS ORDERED: DULoxetine HCL 60 MG Capsule DR PO SCH (09:00)
[2025-08-23] MEDS ORDERED: Enoxaparin 40 MG/0.4 ML SYR SC SCH ×2 (09:00→21:00)
[2025-08-23] MEDS ORDERED: ONDA4ODT SL (10:10)
[2025-08-23] MEDS ORDERED: ZANAFLEX413 PO (10:11)
[2025-08-23] MEDS ORDERED: SUCRALFATE PO (10:12)
[2025-08-23] MEDS ORDERED: MORP30 PO (10:18)
[2025-08-23] MEDS ORDERED: Norco 10-325 T1 EACH PO (10:18)
[2025-08-23] MEDS ORDERED: BUPRENORPHINE TOP (10:29)
[2025-08-23 10:31] LABS: Anion Gap 11.0 mmol/L (3-11); Blood Urea Nitrogen 9.0 mg/dL (8-24); CO2, Blood 29.0 mmol/L (21-32); Calcium, Blood 8.9 mg/dL (8.5-10.1); Chloride, Blood 96.0 mmol/L (98-108); Creatinine, Blood 0.65 mg/dL (0.40-1.00); Glucose, Blood 160.0 mg/dL (70-99); Potassium, Blood 3.7 mmol/L (3.5-5.5); Sodium, Blood 132.0 mmol/L (136-145)
--- NOTE | 2025-08-23 15:04 | NUR ---
SHIFT SUMMARY PATIENT AO X4 T/O SHIFT. VITALS SIGNS STABLE. SBP 160-140. MAP >65. HR SINUS RHYTHM 80-90. 02 SATS >92% ON 3L NC. PATIENT COMPLAINS OF CHEST PAIN AND SOB WHILE PROVIDER WAS BEDSIDE. PATIENT MEDICATED PER EMAR. ECHO COMPLETED TODAY. CHEST XRAY YESTERDAY RESULTS IN CHART. CPAP WHEN SOB OCCURS, SHE HAS A HARD TIME TOLERATING BIPAP. RIGHT AND LEFT AC PIV, PATENT WITH BLOOD RETURN. AMBULATES WELL, SBA TO BATHROOM. BASELINE CHRONIC BACK PAIN ON PAIN CONTRACT, USES BUPRENORPHINE PATCH AT HOME, PHARMACY DOES NOT CARRY THAT PATCH. MEDICATED PER EMAR. DIURESING WELL WITH LASIX
[2025-08-24] VITALS (8 sets, daily range): BP systolic 117–185; BP diastolic 67–101
--- NOTE | 2025-08-24 03:45 | NUR ---
[id number] IN ROOM FOR REASSESSMENT. ASSISTED PATIENT TO RR TO VOID AND BACK TO BED. PATIENT DENIES SOB OR CP. NO LABORED BREATHING. PATIENT NOTED TO HAVE SEVERAL SECOND RUN OF IRREGULAR NARROW COPLEX TACHYCARDIA RATE 160-180'S. RHYTHM RETURNED TO PREVIOUS SR WITHOUT INTERVENTION. A FEW MINUTES LATER, PATIENT WENT BACK INTO IRREGULAR NARROW COMPLEX TACHYCARDIA RATE 180'S. PATIENT GIVEN EMPTY 10CC SYRINGE AND INSTRUCTED ON VAGAL MANEUVERS, WHICH SLOWED RHYTHM TO 100-110'S, IRREGULAR. P WAVES PRESENT, PREMATURE COMPLEXES NOTED. PATIENT DENIES SOB, CP OR SYMPTOMS DURING ALL EPISODES. BP ELEVATED SBP 180. DR CLAROS NOTIFIED. LABETALOL 10MG IV SLOW PUSH GIVEN PER T/O. EKG TO BEDSIDE AND HOOKED UP TO PATIENT. RHYTHM EVENTUALLY NORMALIZED TO PREVIOUS RHYTHM/RATE SR 80-90'S. PATIENT REMAINS ON CARDIAC MONITORING. LABS PENDING AT THIS TIME. PATIENT HAS CALL LIGHT AND INSTRUCTED TO CALL IF SHE HAS CP/SOB.
[2025-08-24 03:54] LABS: BASOPHILS ABSOLUTE AUTO 0.03 K/mm3 (0.00-0.23); BASOPHILS PERCENT AUTO 0 % (0-2); EOSINOPHILS ABSOLUTE AUTO 0.07 K/mm3 (0.00-0.68); EOSINOPHILS PERCENT AUTO 1 % (0-6); Hematocrit 34.7 % (33.0-51.0); Hemoglobin 11.0 g/dL (11.5-16.0); IMMATURE GRAN ABSOLUTE AUTO 0.03 K/mm3 (0.00-0.10); IMMATURE GRAN PERCENT AUTO 0 % (0-1); LYMPHOCYTES ABSOLUTE AUTO 1.82 K/mm3 (0.84-5.20); LYMPHOCYTES PERCENT AUTO 21 % (21-46); MONOCYTES ABSOLUTE AUTO 0.35 K/mm3 (0.16-1.47); MONOCYTES PERCENT AUTO 4 % (4-13); Mean Corpuscular HGB Conc 31.7 g/dL (31.5-36.5); Mean Corpuscular Volume 92 fL (80-100); NEUTROPHILS ABSOLUTE AUTO 6.40 K/mm3 (1.96-9.15); NEUTROPHILS PERCENT AUTO 74 % (41-73); NRBC ABSOLUTE 0.00 K/mm3 (0.00-0.02); NRBC Auto 0.0 /100 WBC (0.0-0.2); Platelet Count 197 K/mm3 (150-400); RDW Coefficient Variation 14.8 % (11.7-14.2); RDW Standard Deviation 49.3 fL (35.1-46.3)
[2025-08-24 04:55] LABS: Magnesium, Blood 2.0 mg/dL (1.6-2.4)
[2025-08-24 04:56] LABS: Anion Gap 10.0 mmol/L (3-11); Blood Urea Nitrogen 11.0 mg/dL (8-24); CO2, Blood 32.0 mmol/L (21-32); Calcium, Blood 8.9 mg/dL (8.5-10.1); Chloride, Blood 98.0 mmol/L (98-108); Creatinine, Blood 0.5 mg/dL (0.40-1.00); Glucose, Blood 124.0 mg/dL (70-99); Potassium, Blood 3.5 mmol/L (3.5-5.5); Sodium, Blood 136.0 mmol/L (136-145)
--- NOTE | 2025-08-24 06:21 | NUR ---
SHIFT SUMMARY PATIENT A/OX4. RESP STATUS IMPROVED FROM PREVIOUS NIGHT. LS CTA IN BASES AT END OF SHIFT. PATIENT MEDICATED PRN FOR CHRONIC PAIN. DENIED CP OR SOB. PATIENT SR ON MONITOR. SHE HAD EPISODES OF IRREGULAR NARROW COMPLEX TACHYCARDIA. SEE PREVIOUS NOTE. PATIENT C/O ABD BLOATING. HAS NOT HAD BM SINCE ADMISSION. GAS-X GIVEN AT END OF SHIFT. REPLACING POTASSIUM VIA IV NOW. PLAN OF CARE ONGOING.
[2025-08-24] MEDS ORDERED: Isosorbide Mononitrate 30 MG TABCR PO SCH (09:00)
[2025-08-24 16:13] LABS: Anion Gap 7.0 mmol/L (3-11); Blood Urea Nitrogen 14.0 mg/dL (8-24); CO2, Blood 33.0 mmol/L (21-32); Calcium, Blood 8.8 mg/dL (8.5-10.1); Chloride, Blood 97.0 mmol/L (98-108); Creatinine, Blood 0.91 mg/dL (0.40-1.00); Glucose, Blood 129.0 mg/dL (70-99); Magnesium, Blood 1.7 mg/dL (1.6-2.4); Potassium, Blood 3.9 mmol/L (3.5-5.5); Sodium, Blood 133.0 mmol/L (136-145); Thyroid Stimulating Hormone 4.66 uIU/mL (0.360-4.800)
--- NOTE | 2025-08-24 18:30 | NUR ---
SHIFT [facility] PATIENT HAS BEEN ALERT AND ORIENTED X4 T/O SHIFT. SBP HAS BEEN 115-160, PROVIDER AWARE. HR HAS 70-90 WITH SEVERAL BOUTS OF SVT THAT HAVE CONVERTED TO SR/ST QUICKLY OR WITH VAGAL MANEUVER. PROVIDER AWARE, MEDICATED PER EMAR. O2 SATS HAVE BEEN >92 ON ROOM AIR. PATIENT WALKED DOWN RODRIGUEZ TODAY WITH SPO2 MONITOR ON PER PROVIDER, O2 SATS >95 DURING AND AFTER WALK. PATIENT IS SBA TO BATHROOM. COMPLAINTS OF CHRONIC BACK PAIN T/O SHIFT. MEDICATED PER EMAR. PATIENT DENIES CHEST PAIN/ PRESSURE/SOB AT THIS TIME. ECHO DONE ON 08/24/25 RESULTS UPDATED TODAY. PATIENT RESTING COMFORTABLY IN BED IN LOWEST POSITION, CALL LIGHT WITHIN REACH.
[2025-08-25 03:06] VITALS: BP 147/83
[2025-08-25 03:39] LABS: BASOPHILS ABSOLUTE AUTO 0.04 K/mm3 (0.00-0.23); BASOPHILS PERCENT AUTO 1 % (0-2); EOSINOPHILS ABSOLUTE AUTO 0.27 K/mm3 (0.00-0.68); EOSINOPHILS PERCENT AUTO 4 % (0-6); Hematocrit 37.2 % (33.0-51.0); Hemoglobin 11.7 g/dL (11.5-16.0); IMMATURE GRAN ABSOLUTE AUTO 0.01 K/mm3 (0.00-0.10); IMMATURE GRAN PERCENT AUTO 0 % (0-1); LYMPHOCYTES ABSOLUTE AUTO 1.98 K/mm3 (0.84-5.20); LYMPHOCYTES PERCENT AUTO 30 % (21-46); MONOCYTES ABSOLUTE AUTO 0.31 K/mm3 (0.16-1.47); MONOCYTES PERCENT AUTO 5 % (4-13); Mean Corpuscular HGB Conc 31.5 g/dL (31.5-36.5); Mean Corpuscular Volume 93 fL (80-100); NEUTROPHILS ABSOLUTE AUTO 3.93 K/mm3 (1.96-9.15); NEUTROPHILS PERCENT AUTO 60 % (41-73); NRBC ABSOLUTE 0.00 K/mm3 (0.00-0.02); NRBC Auto 0.0 /100 WBC (0.0-0.2); Platelet Count 223 K/mm3 (150-400); RDW Coefficient Variation 14.7 % (11.7-14.2); RDW Standard Deviation 50.6 fL (35.1-46.3)
[2025-08-25 03:58] LABS: Magnesium, Blood 2.0 mg/dL (1.6-2.4)
[2025-08-25 03:59] LABS: Anion Gap 7.0 mmol/L (3-11); Blood Urea Nitrogen 12.0 mg/dL (8-24); CO2, Blood 33.0 mmol/L (21-32); Calcium, Blood 9.2 mg/dL (8.5-10.1); Chloride, Blood 99.0 mmol/L (98-108); Creatinine, Blood 0.76 mg/dL (0.40-1.00); Glucose, Blood 112.0 mg/dL (70-99); Potassium, Blood 3.8 mmol/L (3.5-5.5); Sodium, Blood 135.0 mmol/L (136-145)
--- NOTE | 2025-08-25 06:02 | NUR ---
SHIFT SUMMARY PATIENT A/OX4. NO RESP DISTRESS OVERNIGHT. NO ACUTE EVENTS OVERNIGHT. PATIENT MEDICATED PRN ROUTINELY FOR CHRONIC MUSCULOSKELETAL PAIN. AMBULATE TO RR AND PERFORMED OWN ADL'S WITHOUT ANY ISSUES. UTILIZED CPAP WHILE SLEEPING. REQUIRED NO SUPPLEMENTAL O2 OVERNIGHT. PATIENT REMAINED IN SR ON MONITOR. NO TACHYCARDIA OBSERVED ON MONITOR. PATIENT ANTICIPATES DISCHARGE TODAY WITH ZIO PATCH. PLAN OF CARE ONGOING.
[2025-08-25 07:06] VITALS: BP 157/87
[2025-08-25 11:04] VITALS: BP 129/78
--- NOTE | 2025-08-25 13:32 | NUR ---
Pt. is awake in bed and welcomes my visit. Pt. is pleasant. Facilitated a llife review and consdiered matters of joaquín and family. 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 Pt. also verbalizes about her current daignosis. Listen with empathy and a calming presence. Pt. displays evidence of trust and encouragement. Prayed with Pt. Pt. verbalized gratitude for the spiritual care visit.
[2025-08-25] MEDS ORDERED: AMLO5 PO (14:21)
[2025-08-25] MEDS ORDERED: JARDIANCE10 MG PO (14:22)
[2025-08-25] MEDS ORDERED: AZIT500 PO (14:22)
[2025-08-25] MEDS ORDERED: Isosorbide Mono30 MG PO ×2 (14:24)
[2025-08-25] MEDS ORDERED: METO25 PO (14:26)
[2025-08-25] MEDS ORDERED: PAXIL40 MG PO (14:28)
[2025-08-25] MEDS ORDERED: SOAANZ20 M1 PO (14:29)
--- NOTE | 2025-08-25 15:36 | NUR ---
DISCHARGE SUMMARY: PATIENT WITH NO FURTHER ARRYTHMIA SEEN SINCE ASUMPTION OF CARE. PATIENT DENIES CHEST PAIN PRESSURE OR SOB. PATIENT ON RA WITH NO RESPIRATORY DISTRESS. PATIENT IV AND TELE REMOVED BY PCT. GREATER THAN 40 MINUTES OF EDUCATION GIVEN ON NEW HF AND MULTIPLE NEW MEDICATIONS. PATIETN UNDERSTOOD AND ALL QUESTIONS ANSWERED, PATIENT AGREEABLE TO DISCHARGE WITHOUT CONCERN. PATIENT OVERALL SIGNIFICANLTY IMPROVED. NO CONCERNS NOTED FROM THIS RN, PATIENT OR FAMILY. PATIENT WHEELED OUT WITH [employer] BY PCT.
== END 2025-08-25 15:35 | disposition home or self-care (01) | DRG 291 ==
LOC: ER 16:54 → PCU 16:55
PROVIDERS: Nurse Practitioner Acute Care; Student in an Organized Health Care Education/Training Program; ADMIT Internal Medicine
PROC: 5A09357 Assistance with Respiratory Ventilation, Less than 24 Consecutive Hours, Continuous Positive Airway Pressure (ICD-10-PCS; principal; 2025-08-22)
DX: I11.0 Hypertensive heart disease with heart failure (principal); I50.31 Acute diastolic (congestive) heart failure; J96.01 Acute respiratory failure with hypoxia; J96.02 Acute respiratory failure with hypercapnia; I47.10 Supraventricular tachycardia, unspecified; I16.1 Hypertensive emergency; R65.10 Systemic inflammatory response syndrome (SIRS) of non-infectious origin without acute organ dysfunction; Z68.42 Body mass index [BMI] 45.0-49.9, adult; G47.33 Obstructive sleep apnea (adult) (pediatric); E66.01 Morbid (severe) obesity due to excess calories; K21.9 Gastro-esophageal reflux disease without esophagitis; E78.5 Hyperlipidemia, unspecified; E11.9 Type 2 diabetes mellitus without complications; G89.29 Other chronic pain; R07.89 Other chest pain; Z79.891 Long term (current) use of opiate analgesic; Z79.85 Long-term (current) use of injectable non-insulin antidiabetic drugs; Z87.891 Personal history of nicotine dependence
CPT/HCPCS: 0202U; 36415; 36416; 71045; 71260; 80048; 80053; 82803; 82947; 83735; 83880; 84100; 84145; 84443; 84484; 85025; 85379; 87070; 87205; 87637; 93005; 93010; 93246; 93306; 94640; 94660; 94664; 94762; 96372; 96374-59; 96375; 96375-59; 96376; 96376-59; 99285-25; A9270; G0378; J0360; J1171; J1650; J1938; J2060; J2270; J2405; J2470; J2919; J3010; J3480; J7050; Q9967

== ENCOUNTER 2025-09-20 14:09 | Emergency (ER) | payer MEDICARE, OTHER ==
[~2025-09-20] VITALS: Ht 160 cm; Wt 122.9 kg
[~2025-09-20 14:09] MED LIST changes: +AMLO5 PO; +AZIT500 PO; +BUPRENORPHINE TOP; +Bupropion HCl75 MG; +Isosorbide Mono30 MG PO; +JARDIANCE10 MG PO; +METO25 PO; +Norco 10-325 T1 EACH PO; +ONDA4ODT SL; +PAXIL40 MG PO; +SOAANZ20 M1 PO; +SUCRALFATE PO; +ZANAFLEX413 PO
[2025-09-20 15:12] LABS: BASOPHILS ABSOLUTE AUTO 0.02 K/mm3 (0.00-0.23); BASOPHILS PERCENT AUTO 0 % (0-2); EOSINOPHILS ABSOLUTE AUTO 0.27 K/mm3 (0.00-0.68); EOSINOPHILS PERCENT AUTO 5 % (0-6); Hematocrit 30.0 % (33.0-51.0); Hemoglobin 9.5 g/dL (11.5-16.0); IMMATURE GRAN ABSOLUTE AUTO 0.01 K/mm3 (0.00-0.10); IMMATURE GRAN PERCENT AUTO 0 % (0-1); LYMPHOCYTES ABSOLUTE AUTO 1.40 K/mm3 (0.84-5.20); LYMPHOCYTES PERCENT AUTO 26 % (21-46); MONOCYTES ABSOLUTE AUTO 0.35 K/mm3 (0.16-1.47); MONOCYTES PERCENT AUTO 6 % (4-13); Mean Corpuscular HGB Conc 31.7 g/dL (31.5-36.5); Mean Corpuscular Volume 93 fL (80-100); NEUTROPHILS ABSOLUTE AUTO 3.45 K/mm3 (1.96-9.15); NEUTROPHILS PERCENT AUTO 63 % (41-73); NRBC ABSOLUTE 0.00 K/mm3 (0.00-0.02); NRBC Auto 0.0 /100 WBC (0.0-0.2); Platelet Count 206 K/mm3 (150-400); RDW Coefficient Variation 14.2 % (11.7-14.2); RDW Standard Deviation 47.8 fL (35.1-46.3)
[2025-09-20 15:23] LABS: Alanine Aminotransfer (ALT/SGP 46.0 U/L (12-78); Albumin, Blood 3.2 g/dL (3.4-5.0); Albumin/Globulin Ratio 0.8 (0.8-1.8); Anion Gap 6.0 mmol/L (3-11); Aspartate Aminotrans (AST/SGOT 58.0 U/L (12-37); Bilirubin, Total 0.4 mg/dL (0.1-1.0); Blood Urea Nitrogen 39.0 mg/dL (8-24); CO2, Blood 35.0 mmol/L (21-32); Calcium, Blood 8.7 mg/dL (8.5-10.1); Chloride, Blood 96.0 mmol/L (98-108); Creatinine, Blood 1.09 mg/dL (0.40-1.00); Globulin, Blood 4.2 g/dL (2.2-4.0); Glucose, Blood 126.0 mg/dL (70-99); Potassium, Blood 4.7 mmol/L (3.5-5.5); Sodium, Blood 132.0 mmol/L (136-145); Total Protein, Blood 7.4 g/dL (6.4-8.2)
[2025-09-20 16:57] VITALS: BP 101/50
== END 2025-09-20 17:03 | disposition home or self-care (01) ==
LOC: ER 14:09
PROVIDERS: Emergency Medicine
DX: I95.9 Hypotension, unspecified (principal); E78.00 Pure hypercholesterolemia, unspecified; K21.9 Gastro-esophageal reflux disease without esophagitis; Z87.891 Personal history of nicotine dependence; Z91.0110 Allergy to milk products, unspecified; Z88.8 Allergy status to other drugs, medicaments and biological substances; Z79.899 Other long term (current) drug therapy
CPT/HCPCS: 71046; 80053; 83880; 84484; 85025; 93005; 93010; 99284-25